=== PATIENT | female | born 1955 | race Caucasian/White ===

== ENCOUNTER 2021-05-18 07:05 | Emergency (ER) | payer OTHER, SELFPAY ==
[2021-05-18] VITALS (18 sets, daily range): BP systolic 124–179; BP diastolic 60–94; PULSE 73–92; RESP 16–18; TEMP 36.4; O2SAT 82–99; BMI 33.6
--- NOTE | 2021-05-18 07:22 | DI.US.S_ITS ---
PROCEDURE: US ABDOMEN LIMITED INDICATIONS: RIGHT UPPER QUADRANT pain TECHNIQUE: Real-time focused scanning was performed of the abdomen, with image documentation. COMPARISON: None. FINDINGS: The liver demonstrates normal size. The liver demonstrates generalized mildly increased echogenicity. This decreases ultrasound sensitivity for detection of hepatic masses. Mobile gallstones are seen, with the largest measuring up to 1.3 cm. The gallbladder wall is not thickened, measuring 3 mm or less. No specific pericholecystic fluid is seen. The sonographic Madison sign is negative. There is no biliary dilatation, the common bile duct measures 4 mm. No significant pancreatic abnormality is seen on these images, although the pancreas is not well seen. IMPRESSION: Mobile gallstones are seen, yet without additional sonographic signs of cholecystitis. Negative for biliary dilatation. Please correlate with physical examination findings, patient presentation, and laboratory values. Mild fatty liver infiltration. Dictated by: Navdeep Regalado M.D. on 05/18/2021 at 8:44 Approved by: Navdeep Reaglado M.D. on 05/18/2021 at 8:45
--- NOTE | 2021-05-18 07:25 | ED_ITS ---
HPI - Abdominal Pain General Chief Complaint: Abdominal Pain Stated Complaint: R side ABD Pain Time Seen by Provider: 05/18/21 07:13 Source: patient Mode of arrival: Ambulatory Limitations: no limitations History of Present Illness HPI narrative: Patient is a 66-year-old female who presents with right upper quadrant pain. She ate a burger yesterday from lunch in was doing well until this morning when it woke her up suddenly. She woke up around 1:00 a.m. had some intense pain. She thought it was gas she took an alprazolam however the pain continued. It comes and goes in waves. It is nonradiating. She feels nauseous at times she has not vomited. Feels nauseous she denies any chest pain or shortness of breath. She denies any flank pain. Related Data Previous Rx's Medication Instructions Recorded hydrocodone 5 mg-acetaminophen 325 1 tab PO Q6H PRN #20 tab 05/18/21 mg tablet ondansetron 4 mg disintegrating 4 mg PO Q6HR PRN #10 tab 05/18/21 tablet Allergies Allergy/AdvReac Type Severity Reaction Status Date / Time No Known Drug Allergies Allergy Verified 05/18/21 07:20 Review of Systems Review of Systems Narrative: GENERAL: Denies chills, fatigue, malaise, fever, sweats, travel HEENT: Denies sinus pain, ear pain, sore throat, difficulty swallowing, neck pain RESPIRATORY: Denies dyspnea, cough, wheezing, hemoptysis, sputum. CARDIOVASCULAR: Denies chest pain, palpitations, orthopnea, edema GASTROINTESTINAL: See HPI : Denies dysuria, frequency, incontinence, hematuria, urinary retention, flank pain. MUSCULOSKELETAL: Denies weakness, joint pain, or bony pain SKIN: No rash, no erythema, no pruritus NEUROLOGIC: Denies weakness, dizziness, headache, numbness, change in speech, confusion PSYCHIATRIC: No concerning psychosocial issues. 12 point review of systems is negative except for those stated above and HPI Patient History Social History Smoking Status: Never smoker Smoking Status: Never smoker alcohol intake frequency: a few times a month Substance Use Type: does not use Exam Initial Vital Signs Initial Vital Signs: Vital Signs Temperature 97.6 F 05/18/21 07:20 Pulse Rate 73 05/18/21 07:20 Respiratory Rate 16 05/18/21 07:20 Blood Pressure 167/84 H 05/18/21 07:20 Pulse Oximetry 94 05/18/21 07:20 GENERAL: Alert 66-year-old female appears feel uncomfortable in no acute distress. HEENT: Head atraumatic,EOMI, pupils reactive, face symmetric, moist mucous mem brane CARDIOVASCULAR: Regular rate and rhythm without murmurs, rubs or gallops. RESPIRATORY: Breath sounds equal bilaterally, no wheezes rales or rhonchi. ABDOMEN: Soft, nontender. Normoactive bowel sounds all 4 quadrants. No guarding or rebound. : No CVA tenderness EXTREMITIES: Normal range of motion, no clubbing or edema. Neurovascularly intact NEUROLOGICAL: Alert and oriented x4.Normal gait and speech. SKIN: Warm, dry, no laceration, no petechiae, no rashes or lesions. Course Orders Ordered: Discontinued Medications Sodium Chloride (Normal Saline 0.9%) 1,000 mls @ 1,000 mls/hr IV CONT MARILEE Last Infusion: 05/18/21 09:31 Dose: 0 mls/hr Documented by: Admin: 05/18/21 07:32 Dose: 1,000 mls/hr Documented by: CHIDI Ketorolac Tromethamine (Ketorolac 30 Mg/Ml Vial) 30 mg IV NOW ONE Stop: 05/18/21 07:19 Last Admin: 05/18/21 07:32 Dose: 30 mg Documented by: CHIDI Morphine Sulfate (Morphine 4 Mg/Ml Inj) 4 mg IV NOW ONE Stop: 05/18/21 07:45 Last Admin: 05/18/21 07:54 Dose: 4 mg Documented by: CHIDI Ondansetron HCl (Ondansetron 4 Mg/2 Ml Inj) 4 mg IV NOW ONE Stop: 05/18/21 07:45 Last Admin: 05/18/21 07:54 Dose: 4 mg Documented by: CHIDI Vital Signs Vital signs: Vital Signs - 8 hr 05/18/21 10:00 05/18/21 10:01 05/18/21 10:30 Pulse Rate 92 H 92 H 89 Blood Pressure 167/77 H Pulse Oximetry 96 96 90 L 05/18/21 10:31 05/18/21 11:00 05/18/21 11:01 Pulse Rate 90 91 H 91 H Blood Pressure 124/60 167/77 H Pulse Oximetry 96 98 97 09/03/21 11:22 05/18/21 11:34 Pulse Rate 91 H Blood Pressure 161/69 H 161/69 H Pulse Oximetry 95 MDM - Abdominal Pain Lab Data Result diagrams: 05/18/21 07:07 05/18/21 07:07 Labs: Lab Results 05/18/21 05/18/21 Range/Units 07:07 07:07 WBC 8.3 (4.5-11.0) X10^3/uL RBC 5.23 H (4.0-5.2) X10^6/uL Hgb 14.8 (12.0-16.0) g/dL Hct 45.0 (36-46) % MCV 86.0 (80-100) fL MCH 28.3 (26-34) PG MCHC 33.0 (30-36) % RDW 14.2 (11.6-14.8) % Plt Count 292 (150-400) X10^3/uL Neut % (Auto) 73.1 (50-75) % Lymph % (Auto) 17.9 L (25-40) % [place] % (Auto) 5.9 (3-14) % Eos % (Auto) 0.6 L (2-4) % Baso % (Auto) 2.5 H (0-2) % Neut # (Auto) 6000 (9711-9339) /uL Lymph # (Auto) 1500 (0065-6688) /uL [place] # (Auto) 500 (0-900) /uL Eos # (Auto) 0 (0-450) /uL Baso # (Auto) 200 H (0-100) /uL Sodium 139 (137-145) mmol/L Potassium 3.9 (3.4-5.1) mmol/L Chloride 109 H (98-107) mmol/L Carbon Dioxide 20 L (22-32) mmol/L BUN 13 (7-17) mg/dL Creatinine 0.67 (0.52-1.04) mg/dL Estimated GFR > 60.0 (>60) mL/min BUN/Creatinine Ratio 19.4 (6-22) Glucose 128 H (80-110) mg/dL Calcium 9.6 (8.4-10.2) mg/dL Total Bilirubin 0.6 (0.2-1.3) mg/dL AST 33 (14-36) IU/L ALT 17 (<35) IU/L Alkaline Phosphatase 88 (38-126) U/L Total Protein 8.2 (6.3-8.2) g/dL Albumin 4.7 (3.5-5.0) g/dL Globulin 3.5 (1.7-4.1) g/dL Albumin/Globulin Ratio 1.3 (1.0-2.8) Lipase 91 (23-300) U/L Imaging Data US - abdomen: Radiologist's Impression: PROCEDURE: US ABDOMEN LIMITED ? INDICATIONS:? RIGHT UPPER QUADRANT pain ? TECHNIQUE:? Real-time focused scanning was performed of the abdomen, with image documentation.? ? COMPARISON:? None. ? FINDINGS:? The liver demonstrates normal size. The liver demonstrates generalized mildly increased echogenicity. This decreases ultrasound sensitivity for detection of hepatic masses.? ? Mobile gallstones are seen, with the largest measuring up to 1.3 cm.? The gallbladder wall is not thickened, measuring 3 mm or less.? No specific pericholecystic fluid is seen.? The sonographic Madison sign is negative. ? There is no biliary dilatation, the common bile duct measures 4 mm.? ? No significant pancreatic abnormality is seen on these images, although the pancreas is not well seen.? IMPRESSION:? Mobile gallstones are seen, yet without additional sonographic signs of cholecystitis.? Negative for biliary dilatation. ? Please correlate with physical examination findings, patient presentation, and laboratory values.? ? Mild fatty liver infiltration. ? ? Dictated by: Navdeep Regalado M.D. on 05/18/2021 at 8:44 ? ? ECG Data Interpretation: Normal sinus rhythm rate 79 NH interval 166 QRS [address] changes or T-wave inversions MDM Narrative Medical decision making narrative: At this time patient is found to have cholelithiasis without signs of acute cholecystitis. She has no leukocytosis or fever elevated bilirubin LFTs or lipase. Currently her pain is well controlled with Toradol and morphine. 10:39am I have discussed case with Dr. Donato hraris who agrees with outpatient follow-up. Discharge Plan Departure Patient Disposition: Home Clinical Impression: Cholelithiasis Qualifiers: Cholelithiasis location: gallbladder Cholecystitis presence: without cholecystitis Biliary obstruction: without biliary obstruction Qualified Code(s): K80.20 - Calculus of gallbladder without cholecystitis without obstruction Instructions: Gallstones Activity Restrictions/Additional Instructions: *You have been diagnosed with cholelithiasis *What to do: You have a gallstones. Fortunately at this time there is no evidence of obstruction or infection. Recommend low-fat diet, and pain control *Continue to take medications as directed Hydrocodone 1 tablet every 6 hours if needed for pain Zofran 4 mg every 6 hours if needed for nausea vomiting *Follow up with your primary care provider in 2-[address] Caro when they 05/23/2021 at 3:15 a.m. please call to confirm this appointment *Return to ER if you should have fever, increasing pain, persistent vomiting any new, worsening or concerning symptoms CONTROLLED SUBSTANCE DISCHARGE (Narcotoic/benzodiazepine/Flexeril/Phenergan) 1. You have been prescribed narcotic medications, it does have acetaminophen/Tylenol/paracetamol in it, DO NOT TAKE MORE THAN 4,00mg in 24 hours of Tylenol. TRAMADOL DOES NOT CONTAIN TYLENOL 2. Please understand that we cannot provide further refills of narcotics, benzodiazepines or controlled substances through the ED and her pain management will need to be through your provider. 3. While on these medications you cannot drive or operate heavy machinery. 4. You cannot sign legal documents or perform any duties such as this. 5. As long as you're taking opiate pain medications he should also be taking a stool softener such as Colace, Dulcolax, MiraLAX or prune juice, to help avoid constipation. Prescriptions: New hydrocodone-acetaminophen 5-325 mg tablet 1 tab PO Q6H PRN (Reason: pain) Qty: 20 RF: 0 ondansetron 4 mg tablet,disintegrating 4 mg PO Q6HR PRN (Reason: nausea and vomiting) Qty: 10 RF: 0
[2021-05-18] MEDS: KETOROLAC 30 MG/ML VIAL IV (07:32)
[2021-05-18] MEDS: SODIUM CHLORIDE 0.9% 1,000 ML 1000 ML IV (07:32)
[2021-05-18 07:36] LABS: Add Manual Diff / Slide Review NO; Basophils Absolute Auto 200 /uL (0-100); Basophils Percent Auto 2.5 % (0-2); Eosinophils Absolute Auto 0 /uL (0-450); Eosinophils Percent Auto 0.6 % (2-4); Hemoglobin 14.8 g/dL (12.0-16.0); Lymphocytes Absolute Auto 1500 /uL (1100-4500); Lymphocytes Percent Auto 17.9 % (25-40); Mean Corpuscular Hemoglobin 28.3 PG (26-34); Monocytes Absolute Auto 500 /uL (0-900); Monocytes Percent Auto 5.9 % (3-14); Neutrophils Absolute Auto 6000 /uL (1500-7000); Neutrophils Percent Auto 73.1 % (50-75); Platelet Count 292 X10^3/uL (150-400); Red Blood Cell Count 5.23 X10^6/uL (4.0-5.2); Red Cell Distribution Width 14.2 % (11.6-14.8); White Blood Cell Count 8.3 X10^3/uL (4.5-11.0)
[2021-05-18 07:40] LABS: Alanine Aminotransferase 17 IU/L (<35); Albumin 4.7 g/dL (3.5-5.0); Albumin Globulin Ratio 1.3 (1.0-2.8); Alkaline Phosphatase 88 U/L (38-126); Aspartate Aminotransferase 33 IU/L (14-36); BUN Creatinine Ratio 19.4 (6-22); Bilirubin Total 0.6 mg/dL (0.2-1.3); Blood Urea Nitrogen 13 mg/dL (7-17); Calcium 9.6 mg/dL (8.4-10.2); Carbon Dioxide 20 mmol/L (22-32); Chloride 109 mmol/L (98-107); Estimated Glomerular Filt Rate > 60.0 mL/min (>60); Globulin 3.5 g/dL (1.7-4.1); Glucose 128 mg/dL (80-110); HEMOLYSIS < 15 (0-50); Lipase 91 U/L (23-300); Potassium 3.9 mmol/L (3.4-5.1); Sodium 139 mmol/L (137-145); Total Protein 8.2 g/dL (6.3-8.2)
[2021-05-18] MEDS: ONDANSETRON 4 MG/2 ML INJ IV (07:54)
[2021-05-18] MEDS: MORPHINE 4 MG/ML INJ IV (07:54)
== END 2021-05-18 11:34 | disposition home or self-care (01) ==
PROVIDERS: Emergency Provider Emergency Medicine
DX: K80.20 Calculus of gallbladder without cholecystitis without obstruction (principal)
CPT/HCPCS: 36415; 76705; 80053; 83690; 85025; 93005; 96361; 96374; 96375; 99284; J1885; J2270; J2405

== ENCOUNTER → 2021-06-05 09:05 | Outpatient (CLI) | payer OTHER, SELFPAY ==
[2021-06-05 11:21] LABS: COVID19 -Nasal RAPID Negative (Negative)
== END ==
PROVIDERS: Visit Provider Surgery
DX: Z01.812 Encounter for preprocedural laboratory examination (principal); Z20.822 Contact with and (suspected) exposure to COVID-19
CPT/HCPCS: 87635; C9803

== ENCOUNTER 2021-06-06 07:48 | Emergency (ER) | payer OTHER, SELFPAY ==
[2021-06-06 07:50] VITALS: BP 195/87; PULSE 75; RESP 18; TEMP 36.6; O2SAT 97; BMI 32.9
[2021-06-06 08:21] LABS: RBC Urine 10-30/HPF (0-5/HPF); Squamous Epithelial Cell Urine 0-1 /HPF (0-5/HPF); WBC Urine 0-1/HPF (0-5/HPF)
--- NOTE | 2021-06-06 08:22 | ED.GENADULT ---
HPI - General Adult General Chief complaint: Urogenital-Female Stated complaint: lower abdominal spasms and pain Time Seen by Provider: 06/06/21 08:06 Source: patient Mode of arrival: Ambulatory Limitations: no limitations History of Present Illness HPI narrative: Patient is a 66-year-old female who here for evaluation of lower abdominal/urethral spasms and pain. She does have a known history of gallstones. Is scheduled to have her gallbladder removed today as an outpatient procedure. States that last evening she started to have lower abdominal pain, urinary frequency, hesitancy. No fevers. No vomiting. This is a different discomfort then her gallbladder discomfort. She states she had the symptoms all night. This morning things seem to have improved and right now she only has ?twinges ?of discomfort. She states that many years ago she had a bladder infection. She thinks that this potentially feel something like that. Related Data Previous Rx's Medication Instructions Recorded hydrocodone 5 mg-acetaminophen 325 1 tab PO Q6H PRN #20 tab 05/18/21 mg tablet ondansetron 4 mg disintegrating 4 mg PO Q6HR PRN #10 tab 05/18/21 tablet Allergies Allergy/AdvReac Type Severity Reaction Status Date / Time No Known Drug Allergies Allergy Verified 05/23/21 14:12 Review of Systems Constitutional Constitutional: Denies fever(s) Cardiovascular Cardiovascular: Reports system reviewed and no additional complaints, except as documented Respiratory Respiratory: Reports system reviewed and no additional complaints, except as documented Gastrointestinal Gastrointestinal: Reports as per HPI and Reports system reviewed and no additional complaints, except as documented Genitourinary Genitourinary: Reports system reviewed and no additional complaints, except as documented and Reports as per HPI Musculoskeletal Musculoskeletal: Denies back pain Integumentary/Breasts Skin/Breast: Reports system reviewed and no additional complaints, except as documented Hematologic/Lymphatic On Anticoagulants: No Patient History Medical History Arthritis Obesity Social History Smoking Status: Former smoker alcohol intake: current Smoking Status: Former smoker alcohol intake frequency: a few times a month Substance Use Type: does not use Exam Initial Vital Signs Initial Vital Signs: Vital Signs Temperature 97.8 F 06/06/21 07:50 Pulse Rate 75 06/06/21 07:50 Respiratory Rate 18 06/06/21 07:50 Blood Pressure 195/87 H 06/06/21 07:50 Pulse Oximetry 97 06/06/21 07:50 Const General: cooperative, comfortable and well developed HENWV Head: normal to inspection and normocephalic Eyes General: appearance normal, both eyes and all related structures Resp Effort & Inspection: normal respiratory effort Cardio Rate: regular rate GI Inspection: normal to inspection and non-distended Palpation: soft, No firm and No tender General: No CVA tenderness Back/Spine/Pelvis Back: normal to inspection Skin Lesions: no lesions Rashes: no rashes Neuro General: patient alert, patient awake and moves all extremities Extrem General: capillary refill normal Psych Appearance: grossly normal and well kempt Course Orders Ordered: ED Orders 06/06/21 08:04 Urine Microscopic Stat 06/06/21 08:11 Urine Culture Stat 06/06/21 08:17 Complete Blood Count AUTO DIFF Stat Comprehensive Metabolic Panel Stat Lipase Stat 06/06/21 08:21 CT kidney ureter bladder (KUB) Stat Sodium Chloride (Normal Saline 0.9%) 1,000 mls @ 125 mls/hr IV CONT MARILEE Last Admin: 06/06/21 08:26 Dose: 125 mls/hr Documented by: CHIDI Discontinued Medications Ondansetron HCl (Ondansetron 4 Mg/2 Ml Inj) 4 mg IV NOW ONE Stop: 06/06/21 08:12 Last Admin: 06/06/21 08:27 Dose: 4 mg Documented by: CHIDI Vital Signs Vital signs: Vital Signs - 8 hr 06/06/21 07:50 06/06/21 08:31 Temperature 97.8 F Pulse Rate 75 66 Respiratory Rate 18 18 Blood Pressure 195/87 H 136/90 Pulse Oximetry 97 98 Medical Decision Making Lab Data Lab results reviewed: Yes I reviewed the patient's lab results. Result diagrams: 06/06/21 08:17 06/06/21 08:17 Labs: Lab Results 06/06/21 06/06/21 06/06/21 Range/Units 08:04 08:17 08:17 WBC 7.1 (4.5-11.0) X10^3/uL RBC 4.97 (4.0-5.2) X10^6/uL Hgb 14.2 (12.0-16.0) g/dL Hct 43.0 (36-46) % MCV 86.6 (80-100) fL MCH 28.5 (26-34) PG MCHC 32.9 (30-36) % RDW 13.2 (11.6-14.8) % Plt Count 254 (150-400) X10^3/uL Neut % (Auto) 77.1 H (50-75) % Lymph % (Auto) 14.7 L (25-40) % [place] % (Auto) 7.1 (3-14) % Eos % (Auto) 0.4 L (2-4) % Baso % (Auto) 0.7 (0-2) % Neut # (Auto) 5500 (9859-8364) /uL Lymph # (Auto) 1000 L (9791-5001) /uL [place] # (Auto) 500 (0-900) /uL Eos # (Auto) 0 (0-450) /uL Baso # (Auto) 100 (0-100) /uL Sodium 139 (137-145) mmol/L Potassium 4.0 (3.4-5.1) mmol/L Chloride 107 (98-107) mmol/L Carbon Dioxide 28 (22-32) mmol/L BUN 15 (7-17) mg/dL Creatinine 0.62 (0.52-1.04) mg/dL Estimated GFR > 60.0 (>60) mL/min BUN/Creatinine Ratio 24.2 H (6-22) Glucose 113 H (80-110) mg/dL Calcium 9.5 (8.4-10.2) mg/dL Total Bilirubin 0.6 (0.2-1.3) mg/dL AST 25 (14-36) IU/L ALT 16 (<35) IU/L Alkaline Phosphatase 66 (38-126) U/L Total Protein 7.7 (6.3-8.2) g/dL Albumin 4.3 (3.5-5.0) g/dL Globulin 3.4 (1.7-4.1) g/dL Albumin/Globulin Ratio 1.3 (1.0-2.8) Lipase 78 (23-300) U/L Urine RBC 10-30/hpf H (0-5/HPF) Urine WBC 0-1/hpf (0-5/HPF) Ur Squamous Epith Cells 0-1 /hpf (0-5/HPF) Urine Bacteria None seen (None) Ur Culture Indicated? Culture not indicate Urine Dip Bedside Urine Glucose Negative Bedside Urine Bilirubin - Negative Bedside Urine Ketone - Negative Urine Specific [place] 1.015 Bedside Urine Occult Blood +++ Bedside Urine pH 7.0 Bedside Urine Protein - Negative Bedside Urine Urobilinogen - Negative Bedside Urine Nitrite - Negative Bedside Urine Leukocytes - Negative Esterase Point of care testing: Urine Dip Bedside Urine Glucose Negative Bedside Urine Bilirubin - Negative Bedside Urine Ketone - Negative Urine Specific [place] 1.015 Bedside Urine Occult Blood +++ Bedside Urine pH 7.0 Bedside Urine Protein - Negative Bedside Urine Urobilinogen - Negative Bedside Urine Nitrite - Negative Bedside Urine Leukocytes - Negative Esterase Imaging Data CT scan - abdomen/pelvis: Radiologist's Impression: [address] [id number] Scan ReportSigned Patient: Mechelle Saldivar JMR#: [id number]: 4Acct:[id number]/Sex: 66 / FDate of Service: 06/06/21Loc: EDAccession Number: [id number] Procedure: CT kidney ureter bladder (KUB) Ordering Provider: Jasen Zayas D.O. PROCEDURE: CT KIDNEY URETER BLADDER (KUB) INDICATIONS: bladder pressure TECHNIQUE: Axial sections were acquired from the lung bases to the pubic symphysis. Coronal and sagittal reformats were performed. For radiation dose reduction, the following was used: automated exposure control, adjustment of mA and/or kV according to patient size. COMPARISON: None. FINDINGS: Image quality: Excellent. Lung bases: Unremarkable. Heart: No significant findings. URINARY: There is a 4 millimeter calculus at the right UVJ producing mild hydroureteronephrosis. No additional urinary tract calculus. Unremarkable unenhanced appearance of the kidneys. ABDOMEN: Liver: Unremarkable. Gallbladder: Normal. Biliary ducts: Nondilated. Pancreas: Unremarkable. Spleen: Normal size. Adrenal Glands: No adrenal gland nodule or mass. Stomach and Bowel: Stomach, small bowel loops, and colon are unremarkable. Peritoneum: No abnormal intraperitoneal fluid. No free air. Ventral Wall: No hernia. Abdominal Nodes: No enlarged retroperitoneal or mesenteric lymph nodes. Vessels: Aorta and inferior vena cava are normal in size. PELVIS: Pelvic Organs: Unremarkable. Pelvic Nodes: Unremarkable. Miscellaneous: No inguinal hernias are seen. Bones: Unremarkable. IMPRESSION: Approximately 4 millimeter right UVJ calculus producing mild right hydroureteronephrosis. Dictated by: Pascual Greene M.D. on 06/06/2021 at 8:53 Approved by: Pascual Greene M.D. on 06/06/2021 at 8:58 ECG Data Attestation: I personally reviewed and interpreted this ECG as follows: Interpretation: Sinus rhythm Ventricular rate 95 Normal axis Normal QRS Normal QTC Nonspecific ST T wave changes MDM Narrative Medical decision making narrative: Patient's labs unremarkable. Urine has blood but no signs of infection. CT scan shows a right-sided UVJ 4 mm stone. This does correspond to her presenting symptoms. Patient is scheduled to have her gallbladder removed today. This should not keep her from doing this but ultimately would be up to the general surgeon/anesthesiologist. We will keep the IV in place. We will transport her to the preop area. She was informed of the diagnosis. She was given return precautions and follow-up instructions. She expressed understanding agreement. Discharge Plan Departure Patient Disposition: Home Clinical Impression: Right ureteral stone Instructions: DI for Kidney Stones Activity Restrictions/Additional Instructions: You do have a 4 mm right-sided stone. At the time of the CT scan it was almost into the bladder. It is of a size that you should pass this on your own without intervention. We will transport you to the preop area. Decision about whether not you can have surgery today will be made by the general surgeon/anesthesiologist. Return to the emergency department for any new or worsening symptoms. Prescriptions: No Action hydrocodone-acetaminophen 5-325 mg tablet 1 tab PO Q6H PRN (Reason: pain) Qty: 20 RF: 0 ondansetron 4 mg tablet,disintegrating 4 mg PO Q6HR PRN (Reason: nausea and vomiting) Qty: 10 RF: 0
[2021-06-06 08:24] LABS: Add Manual Diff / Slide Review NO; Basophils Absolute Auto 100 /uL (0-100); Basophils Percent Auto 0.7 % (0-2); Eosinophils Absolute Auto 0 /uL (0-450); Eosinophils Percent Auto 0.4 % (2-4); Hemoglobin 14.2 g/dL (12.0-16.0); Lymphocytes Absolute Auto 1000 /uL (1100-4500); Lymphocytes Percent Auto 14.7 % (25-40); Mean Corpuscular HGB Conc 32.9 % (30-36); Mean Corpuscular Hemoglobin 28.5 PG (26-34); Mean Corpuscular Volume 86.6 fL (80-100); Monocytes Absolute Auto 500 /uL (0-900); Monocytes Percent Auto 7.1 % (3-14); Neutrophils Absolute Auto 5500 /uL (1500-7000); Neutrophils Percent Auto 77.1 % (50-75); Platelet Count 254 X10^3/uL (150-400); Red Blood Cell Count 4.97 X10^6/uL (4.0-5.2); Red Cell Distribution Width 13.2 % (11.6-14.8); White Blood Cell Count 7.1 X10^3/uL (4.5-11.0)
[2021-06-06] MEDS: SODIUM CHLORIDE 0.9% 1,000 ML 125 ML IV (08:26)
[2021-06-06] MEDS: ONDANSETRON 4 MG/2 ML INJ IV (08:27)
[2021-06-06 08:30] LABS: Bacteria Urine None Seen
[2021-06-06 08:31] VITALS: BP 136/90; PULSE 66; RESP 18; O2SAT 98
[2021-06-06 08:36] LABS: Alanine Aminotransferase 16 IU/L (<35); Albumin 4.3 g/dL (3.5-5.0); Albumin Globulin Ratio 1.3 (1.0-2.8); Alkaline Phosphatase 66 U/L (38-126); Aspartate Aminotransferase 25 IU/L (14-36); BUN Creatinine Ratio 24.2 (6-22); Bilirubin Total 0.6 mg/dL (0.2-1.3); Blood Urea Nitrogen 15 mg/dL (7-17); Calcium 9.5 mg/dL (8.4-10.2); Carbon Dioxide 28 mmol/L (22-32); Chloride 107 mmol/L (98-107); Estimated Glomerular Filt Rate > 60.0 mL/min (>60); Globulin 3.4 g/dL (1.7-4.1); Glucose 113 mg/dL (80-110); HEMOLYSIS < 15 (0-50); Lipase 78 U/L (23-300); Sodium 139 mmol/L (137-145); Total Protein 7.7 g/dL (6.3-8.2)
== END 2021-06-06 09:15 | disposition home or self-care (01) ==
PROVIDERS: Emergency Provider Emergency Medicine
DX: N20.1 Calculus of ureter (principal)
CPT/HCPCS: 36415; 74176; 80053; 81003; 81015; 83690; 85025; 87086; J2405

== ENCOUNTER 2021-06-06 09:16 | Day surgery (SDC) | payer OTHER, SELFPAY ==
[2021-06-04 12:37] VITALS: BMI 32.3
[2021-06-06] VITALS (33 sets, daily range): BP systolic 85–147; BP diastolic 26–93; PULSE 67–109; RESP 12–29; TEMP 36.1–37.3; O2SAT 90–100; BMI 32.3
--- NOTE | 2021-06-06 | PATH_ITS ---
[facility] Accession Number: [id number] . 01 Material submitted: . gallbladder - GALLBLADDER . 02 Diagnosis: Gallbladder, Cholecystectomy: Chronic cholecystitis with cholelithiasis. Negative for dysplasia and malignancy. MRV 06/11/2021 1142 Local . 02 Electronically signed: . Eunice Davis MD, Pathologist NPI- [id number] . 01 Gross description: . The specimen is received in formalin, labeled gallbladder and consists of a 7.5 x 3.2 x 3.0 cm intact gallbladder with a 0.2 cm in diameter cystic duct. The serosa is ch-green and smooth. Opening reveals green viscous bile with a 1.3 x 1.0 x 0.4 cm black bosselated cholelith. The mucosa is ch-green and velvety, and the wall thickness measures 0.1 cm. [employer] sections are submitted, to include the en face cystic duct margin (blue), in cassette A1. (EA:[id number]) Cassettes A2-A3 additional cross sections of gallbladder. (EA:[id number]) /MRV 06/08/2021 1929 Local . 02 Pathologist provided ICD-10: K80.60 . 02 CPT . 738517 Performed at: 01 [facility] [address], [place], [place] [id number] MD Дмитрий Byrne MD Phone: [phone] Performed at: 02 [facility] [address] [place], [place] [id number] MD Eunice Davis MD Phone: [phone]
--- NOTE | 2021-06-06 10:00 | PM.PREOP ---
Pre-operative Note Interval Note History & Physical reviewed/Exam performed by Physician: Yes Changes to H&P: No
[2021-06-06] MEDS: CEFAZOLIN 1 GM VIAL 2 GM IV ×2 (10:21→15:52)
--- NOTE | 2021-06-06 10:39 | SUR.OPER ---
Supine on padded OR bed, head on pillow, safety belt at thigh, left arm padded and tucked at side. Right arm secured on padded arm board <90 degrees abduction. Legs uncrossed. Padded footboard in place. Tape over blanket to secure lower legs.
[2021-06-06] MEDS: BUPIVACAINE 0.25% (PF) VIAL 30 ML INJ (10:45)
[2021-06-06] MEDS: TRANEXAMIC ACID 1,000 MG in SODIUM CHLORIDE 0.9% 100 ML 200 ML IV (10:58)
[2021-06-06] MEDS: LACTATED RINGERS 1,000 ML 42 ML IV (11:16)
--- NOTE | 2021-06-06 12:27 | P.OP_ITS ---
Operative Date/Time/Diagnoses Date of procedure: 06/06/21 Pre-op diagnosis: Biliary colic Post-op diagnosis: same Procedure & Clinicians Procedure: Laparoscopic cholecystectomy Same procedure as scheduled: Yes Surgeon: Olivier Caro Anesthesia Type: General Operative Notes Findings: diffuse hepatic scarring. continuous venous bleeding from the gallbladder fossa. Estimated Blood Loss (mL): 800 Procedure in detail: The patient was placed supine on the table and bilateral lower extremity compression devices were applied. Anesthesia was induced they were intubated with an endotracheal tube and received 2g of Ancef. A time-out was performed. They were prepped and draped in sterile fashion. An infraumbilical incision was made, the umbilical stalk was elevated and the fascia was sharply incised entering the abdomen atraumatically. A blunt tip 12mm balloon trocar was then inserted, pneumoperitoneum was established and inspection of the abdomen demonstrated no evidence of injury. They were placed head up and right side up and then a 11 mm port was placed high in the epigastrium and two 5mm in the right upper quadrant. The gallbladder was grasped by the fundus and retracted over the liver and retracted laterally by the infundibulum. Using electrocautery the lateral plane between the gallbladder and the liver was opened towards the fundus. The gallbladder was then retracted laterally and the medial plane was developed in the same manner. With the gallbladder mobilized the bottom of the cystic plate was visualized. The hepatocystic triangle was meticulously skeletonized using hook electrocautery of all fat and fibrous tissue from both the front and the back. Only two structures were then clearly seen entering the gallbladder the cystic duct and the cystic artery. With the critical view of safety fully established the cystic duct was clipped twice proximally and once distally using the 10 mm weck hemo clip applied under direct visualization and then sharply divided. The cystic artery was divided in the same fashion. In skeletonizing the cystic triangle I encountered small vessel with pulsatile bleeding within superficial hepatic paraenchyma near the gallbladder fundus. It was isolated and controlled with a hemoclip. The gallbladder was then removed from the liver bed using electro cautery. The liver was notable for diffuse scarring and there was persistent venous oozing from the gallbladder fossa. It was persistent despite increasing the cautery to 120 and surgicel. Ultimately with persistence and the addition of flowseal and manual pressure hemostasis was achieved I estimated that approximately 800 ml of blood loss occurred. The abdomen was irrigated with sterile saline and inspection was made that showed the clips in good position. The specimen Was removed using Endo-Catch. I placed a 19F rozina drain in the gallbladder fossa brought out through the lateral laparoscopic port. The abdomen was desufflated. The umbilical fascia was closed with 0 Vicryl in a f [id number]-cu-[id number] fashion under direct visualization. Skin incisions were irrigated and closed with 4-0 Monocryl. 30 ml of 0.25% bupivacaine was infiltrated into the subcutaneous tissue of the incisions. The wounds were sealed with Dermabond. Patient emerged from anesthesia was extubated and transferred to recovery in stable condition. The sponge and instrument count at the end of the operation was correct. Post-operative Condition: stable Disposition: Acute Care
[2021-06-06] MEDS: fentaNYL 100 MCG/2 ML INJ IV ×3 (12:32→12:44)
[2021-06-06 13:10] LABS: Add Manual Diff / Slide Review NO; Basophils Absolute Auto 0 /uL (0-100); Basophils Percent Auto 0.3 % (0-2); Eosinophils Absolute Auto 0 /uL (0-450); Eosinophils Percent Auto 0.1 % (2-4); Hematocrit 35.7 % (36-46); Hemoglobin 11.6 g/dL (12.0-16.0); Lymphocytes Absolute Auto 900 /uL (1100-4500); Lymphocytes Percent Auto 7.3 % (25-40); Mean Corpuscular HGB Conc 32.5 % (30-36); Mean Corpuscular Hemoglobin 28.4 PG (26-34); Mean Corpuscular Volume 87.3 fL (80-100); Monocytes Absolute Auto 300 /uL (0-900); Monocytes Percent Auto 2.2 % (3-14); Neutrophils Absolute Auto 11500 /uL (1500-7000); Neutrophils Percent Auto 90.1 % (50-75); Platelet Count 227 X10^3/uL (150-400); Red Blood Cell Count 4.09 X10^6/uL (4.0-5.2); Red Cell Distribution Width 13.4 % (11.6-14.8); White Blood Cell Count 12.8 X10^3/uL (4.5-11.0)
[2021-06-06] MEDS: ACETAMINOPHEN 325 MG TABLET 975 MG PO (13:13)
[2021-06-06] MEDS: GABAPENTIN 300 MG CAPSULE PO (13:13)
[2021-06-06 13:20] LABS: INR 1.2 (0.9-1.3); Prothrombin Time 13.2 SECONDS (10.1-12.7)
--- NOTE | 2021-06-06 13:21 | SUR.PHASEI ---
surgeon to bedside. will type and screen and transfuse 2 units rbc. aware of bp and meds given.
[2021-06-06 13:23] LABS: PTT Partial Thromboplastin Tim 23 SECONDS (26.4-36.2)
--- NOTE | 2021-06-06 14:11 | SUR.PHASEI ---
called surgeon in OR to obtain verbal order for telemetry. patient has occasional bigeminy. returns to nsr in between. states has pain 9/10 in RUQ but sleeps for long periods of time on right side. wakes to voice. vss at this time. has been T&C. awaiting blood units. house sup aware of pt status and need for blood. abdomen remains soft. dressings c/d/i x3 and drain dressing c/d/i as well.
[2021-06-06] MEDS: HALOPERIDOL 5 MG/ML VIAL 1 MG IV (14:24)
--- NOTE | 2021-06-06 14:44 | SUR.PHASEI ---
1425-report called to prudencio lowe on floor. 1435-patient transferred to floor. became slightly nauseated just prior to transfer. medicated for such. daughter in room upon arrival. updated on care. vss.
--- NOTE | 2021-06-06 15:45 | PC.NURSE ---
Pt received from PACU at 1430. Vitals stable. Pt moaning and c/o pain. Pt can't get comfortable in bed. Explained to patient that due to low blood pressures, this RN does not want to give her more pain medications until we can get the blood started. 3 lap sites noted on abdomen c/d/i with ABDIEL Jase drain having minimal sanguinous output. On O2 2 liter per NC. Daughter Carmen at bedside. LR started at 100 ml/hr. 1st unit of prbc up and infusing at 150 ml/hr. Tolerating well. RT at bedside doing 12 lead EKG and lab drawing troponin levels. Will report to next RN and continue to monitor.
--- NOTE | 2021-06-06 16:12 | P.CONS_ITS ---
History of Present Illness Consult details Date Patient Seen: 06/06/21 Time Patient Seen: 16:00 Chief complaint: LAP BELL Reason for consult: new bigeminy on EKG Requesting provider: Olivier Caro Narrative: Ms. Saldivar is a 66W with PMH of cholelithiasis with biliary colic. She was planned to have a lap bell today. She has no other significant past medical history. She actually presented to the ED today with lower abdominal pain, and urinary frequency. She was found to have a 4mm calculus at the right UVJ with mild hydronephrosis. UA showed no signs of infection. She then did undergo lap bell today. She did have approximately 800cc of blood loss from a small vessel bleeding and from oozing from the gallbladder fossa. Her blood pressure was in the 80s systolic, hemoglobin 11.6 from 14.2. She was ordered for 2U PRBC and tranexamic acid. She was also noted to be in bigeminy after surgery, which was a new rhythm for her. Stat EKG was ordered and stat troponin was ordered. Consult was placed for further management and workup of this abnormal rhythm. On discussion with patient her sole complaint is generalized abdominal pain. She is currently receiving blood and her blood pressure has improved to systolic of 110s. She denies having any chest pain, shortness of breath, or palpitations. She has not had these cardiac or respiratory symptoms prior to this admission. She has no known cardiac disease. On review of her telemetry she is no longer in bigeminy. She had an EKG from prior to surgery and from after surgery both which showed sinus rhythm, though after surgery she has frequent PVCs. She has some nonspecific ST changes but no acute ischemic changes. Medications: Meloxican PRN for pain, Ativan PRN for sleep Family history: Grandmother with CAD Social history: quit smoking in 2010, no EtOH Meds Home Medications and Allergies Home Medications Medication Instructions Recorded Confirmed Type hydrocodone 5 mg-acetaminophen 325 1 tab PO Q6H PRN #20 tab 05/18/21 06/06/21 Rx mg tablet ondansetron 4 mg disintegrating 4 mg PO Q6HR PRN #10 tab 05/18/21 06/06/21 Rx tablet Allergies Allergy/AdvReac Type Severity Reaction Status Date / Time No Known Drug Allergies Allergy Verified 05/23/21 14:12 Review of Systems Review of Systems Narrative: 14 systems reviewed and negative aside from what is noted in HPI Exam Vital Signs (past 8 hours): - 06/06/21 09:32 06/06/21 12:25 06/06/21 12:30 Temperature 98.2 F 97.5 F L Pulse Rate 67 90 91 H Respiratory Rate 18 29 H 12 Blood Pressure 146/71 H 109/40 L 106/30 L Pulse Oximetry 96 90 L 95 06/06/21 12:32 06/06/21 12:35 06/06/21 12:39 Temperature 97.9 F Pulse Rate 94 H 91 H Respiratory Rate 15 14 Blood Pressure 95/50 L 91/35 L Pulse Oximetry 94 95 06/06/21 12:40 06/06/21 12:44 06/06/21 12:45 Temperature 97.9 F 97.8 F Pulse Rate 81 Respiratory Rate 14 Blood Pressure 91/26 L Pulse Oximetry 96 06/06/21 13:00 06/06/21 13:04 06/06/21 13:15 Temperature 97 F L Pulse Rate 89 84 83 Respiratory Rate 16 14 14 Blood Pressure 86/36 L 92/35 L 88/37 L Pulse Oximetry 96 97 96 06/06/21 13:25 06/06/21 13:30 06/06/21 13:44 Temperature 97 F L Pulse Rate 78 84 77 Respiratory Rate 16 14 15 Blood Pressure 100/38 L 93/36 L 85/41 L Pulse Oximetry 99 99 100 06/06/21 13:50 06/06/21 14:00 06/06/21 14:15 Temperature Pulse Rate 85 88 90 Respiratory Rate 16 16 16 Blood Pressure 107/53 L 115/74 120/71 Pulse Oximetry 99 99 100 06/06/21 14:28 06/06/21 14:30 06/06/21 15:00 Temperature 97.0 F L 97.0 F L Pulse Rate 97 H 105 H 88 Respiratory Rate 16 Blood Pressure 118/49 L 109/71 85/42 L Pulse Oximetry 100 99 99 06/06/21 15:17 06/06/21 15:30 06/06/21 15:44 Temperature 97.0 F L 97.1 F L 97.0 F L Pulse Rate 88 103 H 95 H Respiratory Rate 16 17 16 Blood Pressure 85/42 L 116/68 117/70 Pulse Oximetry 99 Oxygen Delivery Method Nasal Cannula Oxygen Flow Rate 2 Narrative Exam Narrative: GEN: no acute distress, sleepy HEENT: moist mucous membranes, PERRL NECK: no JVD, trachea midline CV: regular rate and rhythm, no murmurs PULM: clear bilaterally, no wheezes, rhonchi, rales ABD: soft, mild diffuse tenderness, bandages clean dry and intact, decreased bowel sounds, no organomegaly EXT: warm and well perfused with no edema NEURO: sleepy, but arousable and alert, moving all extremities with no focal deficits PSYCH: pleasant, cooperative SKIN: dry, warm, no rashes noted Objective Labs Result Diagrams: 06/06/21 12:48 Labs: Laboratory Results - last 24 hr 06/06/21 06/06/21 06/06/21 12:48 12:48 12:48 WBC 12.8 H D RBC 4.09 Hgb 11.6 L Hct 35.7 L MCV 87.3 MCH 28.4 MCHC 32.5 RDW 13.4 Plt Count 227 Neut % (Auto) 90.1 H Lymph % (Auto) 7.3 L Boundary % (Auto) 2.2 L Eos % (Auto) 0.1 L Baso % (Auto) 0.3 Neut # (Auto) 62498 H Lymph # (Auto) 900 L Boundary # (Auto) 300 Eos # (Auto) 0 Baso # (Auto) 0 PT 13.2 H INR 1.2 APTT 23 L Blood Type B Positive Antibody Screen Negative Crossmatch See Detail [facility] Medical History Arthritis Obesity Social History household members: family Tobacco & Substance Use Smoking Status: Former smoker alcohol intake: current Assessment & Plan Assessment & Plan narrative: Ms. Saldivar is a 66W POD #0 from lap bell from biliary colic, earlier today having R renal colic from 4mm obstructing stone, who developed bigeminy after surgery. 1. Sinus rhythm with PVCs, bigeminy, acute -etiology possibly related to increased adrenaline state in setting of surgery, possibly related to electrolyte abnormalities, or possibly myocardial ischemia -check BMP and magnesium -trend troponins -EKG with no acute ischemic changes -keep on telemetry -no need for aspirin for now 2. Renal colic from 4mm stone -patient says symptoms have resolved -possibly passed stone -monitor for further symptoms 3. Acute blood s/p lap bell -POD #0 from lap bell -management per surgery -currently getting transfused PRBCs CODE: Full Proxy:Vanesadaquan Pearl, sister I have utilized all available immediate resources to obtain, update, or review the patient's current medications. Time Spent With Patient Critical Care time: I spent a total of [] minutes of critical care time on this patient's care today; this time is exclusive of procedural time.
[2021-06-06 16:30] LABS: Troponin I < 0.012 ng/mL (0.01-0.034)
[2021-06-06] MEDS: OXYCODONE IR 5 MG TABLET PO ×2 (16:50→22:35)
[2021-06-06 17:20] LABS: Blood Urea Nitrogen 13 mg/dL (7-17); Calcium 8.4 mg/dL (8.4-10.2); Carbon Dioxide 27 mmol/L (22-32); Chloride 104 mmol/L (98-107); Estimated Glomerular Filt Rate > 60.0 mL/min (>60); Glucose 153 mg/dL (80-110); HEMOLYSIS < 15 (0-50); Magnesium 1.5 mg/dL (1.6-2.3); Potassium 3.3 mmol/L (3.4-5.1); Sodium 136 mmol/L (137-145)
[2021-06-06] MEDS: MAGNESIUM SULFATE 2 GM/50 ML PIGGYBACK IV (19:11)
[2021-06-06] MEDS: HYDROMORPHONE 1 MG INJ IV (19:49)
[2021-06-06] MEDS: POTASSIUM CHLORIDE IN WATER 10 MEQ/100 ML PIGGYBACK 100 MEQ IV ×2 (21:55→23:22)
[2021-06-06 22:24] LABS: Troponin I < 0.012 ng/mL (0.01-0.034)
[2021-06-07] VITALS (7 sets, daily range): BP systolic 129–148; BP diastolic 74–79; PULSE 92–97; RESP 16; TEMP 36.3–36.7; O2SAT 95–99
[2021-06-07] MEDS: POTASSIUM CHLORIDE IN WATER 10 MEQ/100 ML PIGGYBACK 85 MEQ IV (00:31)
--- NOTE | 2021-06-07 00:39 | PC.NURSE ---
Patient is complaining of pain at the IV site where K+ is being infused, warm compress was tired and did not help, this RN sowed the rate to 80 mL/hr along with a warm compress around the wrist and the patient is tolerating the infusion better. Will monitor as needed.
[2021-06-07] MEDS: POTASSIUM CHLORIDE IN WATER 10 MEQ/100 ML PIGGYBACK 80 MEQ IV (01:48)
[2021-06-07] MEDS: HYDROMORPHONE 1 MG INJ IV (03:32)
[2021-06-07] MEDS: OXYCODONE IR 5 MG TABLET PO ×2 (05:18→12:13)
[2021-06-07 05:20] LABS: Add Manual Diff / Slide Review NO; Basophils Absolute Auto 0 /uL (0-100); Basophils Percent Auto 0.3 % (0-2); Eosinophils Absolute Auto 0 /uL (0-450); Hematocrit 39.6 % (36-46); Hemoglobin 13.3 g/dL (12.0-16.0); Lymphocytes Absolute Auto 900 /uL (1100-4500); Lymphocytes Percent Auto 6.3 % (25-40); Mean Corpuscular HGB Conc 33.6 % (30-36); Mean Corpuscular Hemoglobin 29.4 PG (26-34); Mean Corpuscular Volume 87.5 fL (80-100); Monocytes Absolute Auto 1600 /uL (0-900); Monocytes Percent Auto 11.1 % (3-14); Neutrophils Absolute Auto 11900 /uL (1500-7000); Neutrophils Percent Auto 82.3 % (50-75); Platelet Count 198 X10^3/uL (150-400); Red Blood Cell Count 4.52 X10^6/uL (4.0-5.2); Red Cell Distribution Width 13.9 % (11.6-14.8); White Blood Cell Count 14.4 X10^3/uL (4.5-11.0)
[2021-06-07 05:30] LABS: Magnesium 2.1 mg/dL (1.6-2.3)
[2021-06-07 05:31] LABS: Alanine Aminotransferase 236 IU/L (<35); Albumin 3.6 g/dL (3.5-5.0); Albumin Globulin Ratio 1.3 (1.0-2.8); Alkaline Phosphatase 50 U/L (38-126); Aspartate Aminotransferase 254 IU/L (14-36); Bilirubin Total 0.6 mg/dL (0.2-1.3); Blood Urea Nitrogen 9 mg/dL (7-17); Calcium 8.7 mg/dL (8.4-10.2); Carbon Dioxide 29 mmol/L (22-32); Chloride 103 mmol/L (98-107); Estimated Glomerular Filt Rate > 60.0 mL/min (>60); Globulin 2.8 g/dL (1.7-4.1); Glucose 121 mg/dL (80-110); HEMOLYSIS < 15 (0-50); Potassium 4.8 mmol/L (3.4-5.1); Sodium 133 mmol/L (137-145); Total Protein 6.4 g/dL (6.3-8.2)
[2021-06-07 05:42] LABS: Troponin I < 0.012 ng/mL (0.01-0.034)
--- NOTE | 2021-06-07 08:14 | PC.NURSE ---
Addendum entered by Yamilex Chiu R.N. 06/07/21 11:50: Patient encouraged to ambulate to help with pain and bowels. Patient receptive. IV's removed, patient tolerated. Patient voiding without complication. Patient given discharge information regarding s/s of worsening condition, infection, diet and activity. Patient verbalized understanding. Original Note: Patient up to restroom for void. Tolerating movement, HV intact, dsg saturated. Abdominal incisions WNL, dsg CDI. BT faint x 4, patient reports no flatus. Last BM 06/06 prior to Sx. Lungs CTA, patient on RA, 95%. VSS. Patient denies dizziness, lightheadedness, numbness or tingling in extremities. Up with FWW then transitioned to SBA with no FWW. Back to bed. SCD's on bilaterally. Tolerating fluids, denies appetite for food. Call light in reach. Daughter remains in room.
--- NOTE | 2021-06-07 12:20 | CM.DANOTE ---
DCP assessment: Patient is a 66 yr old female who was admitted after a lap chol preformed by Dr. Caro due to excess blood loss during procedure. CM met with patient at the bedside and explained role. Patient was alert and oriented x4 and dress ready to be DC home. Patient lives alone in a single level home but is planning on staying with her sister Vanesa at [place] for a week. Does not use DM, is independent with ADLS and drives at baseline. I: [employer] and self pay P: DC home with sister no DC planning needs at this time CM department will follow patient to assist with any needs that may arise Discharge Planning/Care Management CM Discharge Assessment Start: 06/07/21 12:19 Freq: Status: Active Protocol: Document 06/07/21 12:19 HS (Rec: 06/07/21 12:20 [id number]) Discharge Planning Assessment Assigned Binder Cutter Hand Magry Calix RN DPOA/Assigned Designee Name Vanesa Pearl (Sister) Contact Information [phone] Advance Directives? No History Provided By Patient,Medical Record Has Patient been admitted in last 30 No days? Prior Living Arrangements House Household Members spouse,family Type of transporation used prior to Drives own vehicle admit Independent with ADL's Yes Is patient alert and oriented? Yes Caregiver for Another No Comment none Barriers to Discharge No Discharge Plan Home Referrals Initiated None needed Whiteboard Updated in Patient Room with Yes name and ext. # of Binder Cutter Hand Review Status In Process Next Review Type Continued Stay Review Pre-Anesthesia Assessment Start: 06/04/21 12:37 Freq: Status: Active Protocol: Document 06/04/21 12:37 CAB (Rec: 06/04/21 12:41 CAB [id number]) Pre-Anesthesia Assessment Patient Information Reviewed Via Chart Review Comment COVID screen @ 06/05/21 Specialist Seen Emergency,General surgeon Primary Language Armenian Derrick Boat Captain Required No Height 161.93 cm Weight 84.822 kg Body Mass Index (BMI) 32.3 Barriers to Learning None Hx Anesthesia Reactions Prior surgical history not identified Anesthesia Review Requested No Water Softener Servicer No alcohol intake current alcohol intake frequency a few times a month Smoking Status Never smoker Substance Use Type does not use Pain Present Pain Reported Comment RUQ Patient is completely paralyzed or No completely immobile Mental Status Oriented to own ability Is patient on oxygen? No Hx Sleep Apnea No Currently Taking a Beta Laxmi No Anti-Coagulant Therapy No Has a Pouncing Lathe Operator No Cardiac Testing No Hx Pacemaker/ICD No Pacemaker Rep Required? No Cardiac Clearance Received Not Applicable Gastrointestinal Symptoms Abdominal Pain,Bloating,Nausea ,Vomiting Urinary Catheter Present No Hx Urinary Self Catheterization No Diabetes No Patient No Lactating No Marital Status Unknown Patient Discharge Plan Description Return Home Advance Directives? No
== END 2021-06-07 12:35 | disposition home or self-care (01) | DRG 908 ==
LOC: OR 09:17 → AC 06-07 08:07
PROVIDERS: Internal Medicine; Referring Provider Surgery; Visit Provider Surgery
PROC: 0FT44ZZ Resection of Gallbladder, Percutaneous Endoscopic Approach (ICD-10-PCS; CPT 47562; principal; 2021-06-06 10:45)
DX: K80.70 Calculus of gallbladder and bile duct without cholecystitis without obstruction (principal); K91.61 Intraoperative hemorrhage and hematoma of a digestive system organ or structure complicating a digestive system procedure; N13.2 Hydronephrosis with renal and ureteral calculous obstruction; R00.8 Other abnormalities of heart beat; I49.3 Ventricular premature depolarization; Z87.891 Personal history of nicotine dependence; D62 Acute posthemorrhagic anemia; E66.9 Obesity, unspecified
CPT/HCPCS: 47562; 36415; 36430; 74176; 80048; 80053; 81003; 81015; 83690; 83735; 84484; 85025; 85610; 85730; 86850; 86900; 86901; 87086; 93005; 93010; 94760; 99284; G0378; P9016; J0330; J0690; J1100; J1170; J1630; J2250; J2405; J2704; J3010; J3475

== ENCOUNTER → 2023-01-07 12:03 | Outpatient (CLI) | payer OTHER, SELFPAY ==
[2021-06-06 12:20] VITALS: BMI 32.3
--- NOTE | 2023-01-07 20:08 | DI.NM.S_ITS ---
DATE OF SERVICE: 01/07/2023 PROCEDURE: Exercise treadmill stress only myocardial perfusion imaging with gating to assess ejection fraction and regional wall motion. ORDERING PROVIDER: WADE Haro. INDICATIONS: The patient is a 67-year-old smoker with atypical chest discomfort. CARDIAC STRESS: Per protocol. The patient was able to exercise for 3 minutes 31 seconds on a standard Andrew protocol, suggesting moderate-severely reduced exercise capacity with an CATHY of +38%. She had a normal heart rate and blood pressure response to exercise, achieving a maximum heart rate of 134 BPM (88% of her predicted maximum). She had no chest discomfort or other anginal symptom. Her resting ECG shows sinus rhythm with normal ST segments. With stress, there were no ST-segment shifts or arrhythmias. At 2 minutes, 43 seconds of exercise at a heart rate of 128 BPM, 25.3 mCi of technetium-99m Myoview was injected, and she was imaged 10 minutes later using a gated SPECT acquisition protocol. Given the absence of any obvious perfusion defects on the stress images, it was felt that resting images were not necessary. FINDINGS: 1. Raw data. There is fair myocardial tracer uptake with moderate breast shadows noted. The lung/heart ratio is normal at 0.31. 2. Quantitated gated SPECT: Post-stress ejection fraction is estimated at 73% without any focal wall motion abnormality and a normal end-diastolic volume of 101 mL. 3. Myocardial perfusion imaging: Post-stress supine images show a very uniform pattern of tracer activity without any perfusion defects, supported by normal perfusion imaging in the prone position. Given the absence of any perfusion defects, it was felt that resting images were not necessary. IMPRESSION: 1. Normal myocardial perfusion study. 2. No evidence for myocardial ischemia or previous myocardial infarction. 3. Normal left ventricular systolic function without focal wall motion abnormality. 4. Moderate-severely reduced exercise capacity without angina or ECG evidence of ischemia. Mechelle Saldivar - /becky/ doc#: [id number]/job#: [id number] dd: 01/07/2023 16:58:00 dt: 01/07/2023 19:47:00 DICTATING /COPIES TO: Jesús Sandy MD COPIES MNE: CRISTINO;
== END ==
PROVIDERS: PCP Physician Assistant Medical; Referring Provider Physician Assistant Medical; Visit Provider Physician Assistant Medical
DX: R07.89 Other chest pain (principal); F17.200 Nicotine dependence, unspecified, uncomplicated
CPT/HCPCS: 78451; 93017; A9502